=== PATIENT | female | born 1945 | race Caucasian/White ===

== ENCOUNTER 2023-08-15 10:48 | Emergency (ER) | payer MEDICARE ==
[~2023-08-15] VITALS: Ht 154.9 cm; Wt 41.9 kg
[2023-08-15 10:58] VITALS: TEMP 97.8
[2023-08-15 12:49] LABS: BILIRUBIN,URINE NEGATIVE (Neg); CLARITY,URINE SLIGHTLY CLOUDY (Clear); COLOR,URINE YELLOW (Yellow); GLUCOSE, URINE NEGATIVE (Neg); KETONES,URINE NEGATIVE (Neg); LEUKOCYTE ESTERASE ,URINE MODERATE (Neg); NITRITES, URINE NEGATIVE (Neg); OCCULT BLOOD,URINE NEGATIVE (Neg); PROTEIN,URINE NEGATIVE (Neg); UROBILINOGEN,URINE 0.2 E.U/dL (0.2-1.0)
[2023-08-15 12:51] LABS: UA COLLECTION TYPE CLN CATCH MIDSTREAM
[2023-08-15 13:10] LABS: WBC,URINE TNTC /HPF (0-4)
[2023-08-15 13:15] LABS: CAL OXALATE CRYSTALS 1+ /HPF (NEGATIVE)
[2023-08-15 13:17] LABS: WBC CLUMPS,URINE FEW /HPF (NEGATIVE)
[2023-08-15 13:18] LABS: BACTERIA,URINE FEW /HPF (Neg); RBC,URINE NONE SEEN /HPF (0-2)
[2023-08-15 13:19] LABS: HYALINE CASTS 0-3 /LPF (NEGATIVE); SQUAMOUS EPITHELIAL CELL,UR MODERATE /LPF (FEW); TRANSITIONAL EPI CELLS,URINE MODERATE /HPF
[2023-08-15 13:35] LABS: BASOPHILS % (AUTO) 0.4 % (0-1); EOSINOPHILS # (AUTO) 0.3 X10'3 (0-0.9); EOSINOPHILS % (AUTO) 2.9 % (0-6); HEMATOCRIT 42.2 % (35.0-45.0); HEMOGLOBIN 14.1 g/dl (12.0-16.0); LYMPHOCYTES # (AUTO) 2.1 X10'3 (1.1-4.8); LYMPHOCYTES % (AUTO) 20.4 % (21-51); MEAN CORPUSCULAR HEMOGLOBIN 31.4 PG (27.0-31.0); MEAN CORPUSCULAR HGB CONC 33.5 g/dL (33.0-36.5); MEAN CORPUSCULAR VOLUME 93.7 FL (78-98); MEAN PLATELET VOLUME 9.5 FL (7.4-10.4); MONOCYTES # (AUTO) 0.7 X10'3 (0-0.9); MONOCYTES % (AUTO) 7.1 % (2-12); NEUTROPHILS # (AUTO) 7.1 X10'3 (1.8-7.7); NEUTROPHILS % (AUTO) 69.2 % (42-75); PLATELET COUNT 251 X10'3 (140-440); RED CELL DISTRIBUTION WIDTH 13.8 % (11.5-14.5); WHITE BLOOD COUNT 10.2 X10'3 (4.5-11.0)
[2023-08-15 13:43] LABS: ALBUMIN 3.6 G/DL (3.4-5.0); ANION GAP 7 (8-16); BLOOD UREA NITROGEN 14 MG/DL (7-18); BUN/CREATININE RATIO 20.9 (10.0-20.0); CALCIUM 9.7 MG/DL (8.5-10.1); CHLORIDE 100 MMOL/L (99-107); CREATININE 0.67 MG/DL (0.40-0.90); GLUCOSE 89 MG/DL (70-104); POTASSIUM 4.1 MMOL/L (3.5-5.1); SODIUM 136 MMOL/L (135-145); TOTAL CARBON DIOXIDE 28.9 MMOL/L (24-32); eCRCL 45 ML/MIN; eGFR 85 ML/MIN
[2023-08-15 13:46] LABS: APTT 26 SECONDS (22-32); PROTHROMBIN TIME 10.3 SECONDS (9.0-12.0)
[2023-08-15] MEDS ORDERED: GADOTERATE MEGLUMINE 7.5 MMOL/15 ML VIAL IV ONE (16:37)
[2023-08-15 16:49] VITALS: BP 139/65; PULSE 60; RESP 16; O2SAT 98
== END 2023-08-15 16:50 | disposition home or self-care (01) ==
LOC: ER 10:48
DX: R22.0 Localized swelling, mass and lump, head (principal); R94.31 Abnormal electrocardiogram [ECG] [EKG]
CPT/HCPCS: 36415; 70450; 70553; 71045; 80048; 81001; 85025; 85610; 85730; 86885; 86900; 86901; 87077; 87088; 87186; 93005; 99285; A9575

== ENCOUNTER 2024-08-01 13:44 | Outpatient (CLI) | payer MEDICARE, MEDICAID ==
--- NOTE | 2024-08-01 14:36 | RADIOLOGY REPORT ---
EXAM: CT CT HEAD HISTORY: OTHER ACQUIRED DEFORMITY OF HEAD COMPARISON: MR MRI HEAD on DOS: 08/15/23, CT CT HEAD on DOS: 08/15/23 TECHNIQUE: Noncontrast axial CT images of the head were performed. Sagittal and coronal reformatted i mages were obtained. This CT exam was performed using 1 or more of the following dose reduction techn iques: Automated exposure control, adjustment of the mA and/or kv according to patient size, or the u se of iterative reconstruction techniques. Radiation Dose: CTDI volume is 52.82 mGy. Dose-length product is 835.01 mGy*cm FINDINGS: There are interval postoperative changes right frontal craniotomy near the vertex, with removal of ma ss lesion seen on the previous CT scan. There is mild global brain atrophy. There is mild decreased a ttenuation in the bicerebral white matter. No intracranial hemorrhage, mass, midline shift, hydroceph alus, or evidence of acute large vessel infarct. The partially-visualized paranasal sinuses are clear . There is fluid in the bilateral mastoid air cells and middle ear spaces. No cranial fracture or sca lp edema. IMPRESSION: 1. Mild chronic ischemic changes without evidence of acute intracranial process. 2. 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 3. Fluid in the bilateral mastoid air cells and middle ear spaces which may be due to mastoiditis and otitis media. These findings are similar to that seen previously.
--- NOTE | 2024-08-01 16:53 | RADIOLOGY REPORT ---
EXAM: MR MRI HEAD CLINICAL HISTORY: OTHER ACQUIRED DEFORMITY OF HEAD COMPARISON: CT CT HEAD on DOS: 08/01/24, MR MRI HEAD on DOS: 08/15/23, CT CT HEAD on DOS: 08/15/23 TECHNIQUE: Multiplanar, multisequence magnetic resonance imaging of the brain was performed after the administra tion of intravenous contrast. 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 Moderate diffuse brain atrophy. Mild chronic small-vessel ischemic changes. No hemorrhages, midline shift, herniation or cytotoxic edema following large vascular territory. No intra-axial or extra-axial fluid collections. No evidence of hydrocephalus. The basal cisterns are p atent. The visualized vascular flow voids are maintained. The pituitary gland, sella parasellar regions unremarkable. The cerebellar tonsils are normal positi on. The cerebellum is unremarkable. The orbits and globes unremarkable. Mild mucoperiosteal thickening of the maxillary sinuses and ethmo id air cells. Otherwise, the paranasal sinuses are clear. Opacification of bilateral mastoids. IMPRESSION: No evidence of acute intracranial abnormalities. 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
[2024-08-01] MEDS ORDERED: GADOTERATE MEGLUMINE 7.5 MMOL/15 ML VIAL IV ONE (18:26)
== END 2024-08-01 23:59 | disposition home or self-care (01) ==
LOC: RAD 13:44
PROVIDERS: ATTEND Nurse Practitioner Primary Care
DX: I67.82 Cerebral ischemia (principal); M95.2 Other acquired deformity of head; Z98.890 Other specified postprocedural states; G31.9 Degenerative disease of nervous system, unspecified
CPT/HCPCS: 70450; 70553; A9575